=== PATIENT | male | born 1965 | race Caucasian/White ===

== ENCOUNTER → 2017-11-13 | Emergency (ER) | payer OTHER ==
[~2017-11-13] VITALS: Ht 182.9 cm; Wt 90.7 kg
== END | disposition home or self-care (01) ==
LOC: ER 18:46
DX: S01.422A Laceration with foreign body of left cheek and temporomandibular area, initial encounter (principal); W45.8XXA Other foreign body or object entering through skin, initial encounter; Y93.18 Activity, surfing, windsurfing and boogie boarding; Y92.832 Beach as the place of occurrence of the external cause; Y99.8 Other external cause status

== ENCOUNTER 2020-09-30 16:44 | Emergency (ER) | payer OTHER ==
[~2020-09-30] VITALS: Ht 182.9 cm; Wt 90.7 kg
== END 2020-09-30 19:09 | disposition home or self-care (01) ==
LOC: ER 16:44
DX: S91.321A Laceration with foreign body, right foot, initial encounter (principal); W45.8XXA Other foreign body or object entering through skin, initial encounter; Y93.89 Activity, other specified; Y92.832 Beach as the place of occurrence of the external cause; Y99.8 Other external cause status

== ENCOUNTER 2020-10-08 16:48 | Emergency (ER) | payer OTHER ==
[~2020-10-08] VITALS: Ht 182.9 cm; Wt 90.7 kg
== END 2020-10-08 18:17 | disposition home or self-care (01) ==
LOC: ER 16:48
DX: Z48.02 Encounter for removal of sutures (principal)

== ENCOUNTER 2021-01-18 13:31 | Emergency (ER) | payer OTHER ==
[~2021-01-18] VITALS: Ht 182.9 cm; Wt 90.7 kg
== END 2021-01-18 19:29 | disposition home or self-care (01) ==
LOC: ER 13:31 → CPU-OBS 14:12 → ER 14:12
DX: R07.89 Other chest pain (principal); Z11.52 Encounter for screening for COVID-19
CPT/HCPCS: G0378; G0379; 93005

== ENCOUNTER → 2022-07-31 | Emergency (ER) | payer OTHER ==
[~2022-07-31] VITALS: Ht 182.9 cm; Wt 88.9 kg
[~2022-07-31] MED LIST: MUPIROCIN1 G1 TOP
== END | disposition left against medical advice (07) ==
LOC: ER 10:37
DX: S00.512A Abrasion of oral cavity, initial encounter (principal); X58.XXXA Exposure to other specified factors, initial encounter; Y93.9 Activity, unspecified; Y92.9 Unspecified place or not applicable

== ENCOUNTER 2022-08-04 16:18 | Emergency (ER) | payer OTHER ==
[~2022-08-04] VITALS: Ht 182.9 cm; Wt 89.8 kg
== END 2022-08-04 21:03 | disposition home or self-care (01) ==
LOC: ER 16:18
DX: J10.1 Influenza due to other identified influenza virus with other respiratory manifestations (principal); Z20.822 Contact with and (suspected) exposure to COVID-19

== ENCOUNTER 2022-08-13 08:19 | Emergency (ER) | payer OTHER ==
[~2022-08-13] VITALS: Ht 182.9 cm; Wt 88.9 kg
[2022-08-13] MEDS ORDERED: CIPRO500 MG PO (09:29)
== END 2022-08-13 09:50 | disposition home or self-care (01) ==
LOC: ER 08:19
DX: L02.01 Cutaneous abscess of face (principal)

== ENCOUNTER 2024-05-27 13:53 | Emergency (ER) | payer OTHER ==
[~2024-05-27] VITALS: Ht 182.9 cm; Wt 89.4 kg
[~2024-05-27 13:53] MED LIST changes: +CIPRO500 MG PO
== END 2024-05-27 16:02 | disposition home or self-care (01) ==
LOC: ER 13:55
DX: M25.511 Pain in right shoulder (principal); M25.521 Pain in right elbow